=== PATIENT | female | born 1980 | race American Indian/Alaskan Native ===

== ENCOUNTER 2022-06-21 16:13 | Emergency (ER) | payer MEDICAID ==
[2022-06-21] MEDS ORDERED: FAMOTIDINE 20 MG/2 ML INJ IV ONE (20:37)
[2022-06-21] MEDS ORDERED: MORPHINE 4 MG/1 ML INJ IV ONE (20:37)
[2022-06-21] MEDS ORDERED: ONDANSETRON 4 MG/2 ML INJ IV ONE (20:37)
[2022-06-21 20:59] LABS: Basophils % (Auto) 0.3 % (0.0-1.8); Eosinophils % (Auto) 0.1 % (0.0-4.3); Hematocrit 42.2 % (30.3-42.9); Hemoglobin 13.8 gm/dl (10.1-14.3); Lymphocytes # (Auto) 1.9 K/mm3 (1.2-5.4); Lymphocytes % (Auto) 14.1 % (13.4-35.0); Mean Corpuscular HGB Conc 33 % (30-34); Mean Corpuscular Volume 83 fl (79-97); Monocytes # (Auto) 0.8 K/mm3 (0.0-0.8); Monocytes % (Auto) 6.3 % (0.0-7.3); Platelet Count 354 K/mm3 (140-440); Red Blood Count 5.07 M/mm3 (3.65-5.03); Red Cell Distribution Width 16.5 % (13.2-15.2)
[2022-06-21 21:19] LABS: Alanine Aminotransferase 8 units/L (7-56); Albumin 4.3 g/dL (3.9-5); Blood Urea Nitrogen 8 mg/dL (7-17); Calcium 9.4 mg/dL (8.4-10.2); Hemolysis Index 7
[2022-06-21 21:24] LABS: BUN/Creatinine Ratio 11
[2022-06-21 21:33] LABS: Color,Urine Yellow (Yellow)
[2022-06-21 21:35] LABS: Bilirubin,Urine Small (Negative); Blood,Urine Negative (Negative)
[2022-06-21 21:36] LABS: Urobilinogen,Urine 0.2 mg/dL (<2.0)
[2022-06-21 21:38] LABS: Ictotest,Urine Negative (Negative)
[2022-06-21 21:40] LABS: Hyaline Casts,Urine 14 /LPF; Mucus,Urine 3+ /HPF
[2022-06-21] MEDS ORDERED: POTASSIUM CHLORIDE ER 20 MEQ TAB PO ONE (21:46)
--- NOTE | 2022-06-21 22:23 | XRay Report ---
CHEST 1 VIEW INDICATION: chest pain. COMPARISON: None. FINDINGS: Support devices: None. Heart: Normal. Lungs/Pleura: No acute pulmonary or pleural findings. IMPRESSION: 1. No acute findings. Signer Name: Wilian Robison MD Signed: 06/21/2022 10:18 PM Workstation Name: [id number]
--- NOTE | 2022-06-21 22:26 | Cat Scan Report ---
CT ABDOMEN AND PELVIS WITH IV CONTRAST INDICATION: ABDOMINAL PAIN 100ml of [id number] per pt, having all over abdominal pain and symptoms sounding like ref lux as well. COMPARISON: None available. TECHNIQUE: All CT scans at this facility use dose modulation, automated exposure control, iterative reconstructi on or weight based dosing, when appropriate, to reduce radiation dose to as low as reasonably achieva ble. FINDINGS: Lung Bases: No significant abnormality. Skeletal System: No acute abnormality. ABDOMEN: Liver: No significant abnormality. Gallbladder: Removed. Bile Ducts: No significant abnormality. Adrenals: No significant abnormality. Right Kidney: No significant abnormality. Left Kidney: No significant abnormality. Pancreas: No significant abnormality. Spleen: No significant abnormality. Upper GI tract: No significant abnormality. Lymph Nodes: No significant adenopathy. Aorta: No significant abnormality. Additional Findings: No significant abnormality. PELVIS: Colon: No acute abnormality. Urinary Bladder and Distal Ureters: No significant abnormality. Appendix: No significant abnormality. Lymph Nodes: No significant adenopathy. Additional Findings: Enhancing uterine myometrial lesions are consistent with fibroids. IMPRESSION: 1. No acute process in the abdomen or pelvis. 2. Incidental findings, as above. Signer Name: Wilian Robison MD Signed: 06/21/2022 10:21 PM Workstation Name: [id number]
[2022-06-21] MEDS ORDERED: SUCRALFATE 1 GM/10 ML ORAL LIQD PO ONE (22:46)
--- NOTE | 2022-06-22 00:39 | Emergency Department Report ---
ED Abdominal Pain HPI - General Chief Complaint: Abdominal Pain Stated Complaint: STOMACH PAIN Source: patient Mode of arrival: Ambulatory Limitations: No Limitations - History of Present Illness Initial Comments: Patient is a 41-year-old -[place] female with a history of hypertension and who is noncompliant with medication presents to the ED with complaint of acute onset persistent epigastric pain with nausea and vomiting for the last 1 week, worse in the last 3 days. Patient states that she has not been able to keep anything down because of persistent pain in the epigastric area and nausea and vomiting in the last 2 days. Patient denies fever, chills, nausea, vomiting, chest pain, shortness of breath, diarrhea, dysuria, urinary frequency and urgency, vaginal bleeding or vaginal discharge or low back pain. MD Complaint: abdominal pain (epigastric pain), other (nausea and vomiting) -: Gradual, week(s) (1) Location: epigastric Radiation: none Migration to: no migration Severity: severe Severity scale (0 -10): 8 Quality: cramping, sharp Improves With: nothing Worsens With: eating, vomiting Context: other (GERD) Associated Symptoms: denies other symptoms, nausea, vomiting, constipation - Related Data LMP Date: 05/29/22 Previous Rx's Medication Instructions Recorded Last Taken Type Erythromycin [Erythromycin Ophth 0.5 inch OD TID #1 tube 12/19/14 Unknown Rx Oint] Mupirocin [Bactroban 2% OINT] 1 applic TP BID #7 day 12/19/14 Unknown Rx Sulfamethoxazole/Trimethoprim 1 each PO BID #20 tablet 12/19/14 Unknown Rx [Bactrim Ds] amLODIPine 5 mg PO DAILY #30 tab 12/19/14 Unknown Rx Dicyclomine [Bentyl] 20 mg PO Q6H PRN #30 tablet 06/22/22 Unknown Rx Famotidine [Pepcid] 20 mg PO BID #60 tablet 06/22/22 Unknown Rx Omeprazole 40 mg PO DAILY #30 cap 06/22/22 Unknown Rx Ondansetron [Zofran Odt] 4 mg PO Q8HR PRN #20 tab.rapdis 06/22/22 Unknown Rx amLODIPine 10 mg PO DAILY #30 tab 06/22/22 Unknown Rx Allergies Allergy/AdvReac Type Severity Reaction Status Date / Time No Known Allergies Allergy Verified 02/02/15 12:01 ED Review of Systems ROS: Stated complaint: STOMACH PAIN Other details as noted in HPI Constitutional: denies: chills, fever Eyes: denies: eye pain, eye discharge, vision change ENT: denies: ear pain, throat pain Respiratory: denies: cough, shortness of breath, wheezing Cardiovascular: denies: chest pain, palpitations Endocrine: no symptoms reported Gastrointestinal: nausea, vomiting, constipation. denies: abdominal pain, diarrhea Genitourinary: denies: urgency, dysuria, discharge Musculoskeletal: denies: back pain, joint swelling, arthralgia Skin: denies: rash, lesions Neurological: denies: headache, weakness, paresthesias Psychiatric: denies: anxiety, depression Hematological/Lymphatic: denies: easy bleeding, easy bruising ED Past Medical Hx - Past Medical History Hx Hypertension: Yes Additional medical history: meningitis 2003 - Surgical History Hx Cholecystectomy: Yes - Social History Smoking Status: Current Every Day Smoker - Medications Home Medications: Home Medications Medication Instructions Recorded Confirmed Last Taken Type Erythromycin [Erythromycin Ophth 0.5 inch OD TID #1 tube 12/19/14 Unknown Rx Oint] Mupirocin [Bactroban 2% OINT] 1 applic TP BID #7 day 12/19/14 Unknown Rx Sulfamethoxazole/Trimethoprim 1 each PO BID #20 tablet 12/19/14 Unknown Rx [Bactrim Ds] amLODIPine 5 mg PO DAILY #30 tab 12/19/14 Unknown Rx Dicyclomine [Bentyl] 20 mg PO Q6H PRN #30 tablet 06/22/22 Unknown Rx Famotidine [Pepcid] 20 mg PO BID #60 tablet 06/22/22 Unknown Rx Omeprazole 40 mg PO DAILY #30 cap 06/22/22 Unknown Rx Ondansetron [Zofran Odt] 4 mg PO Q8HR PRN #20 tab.rapdis 06/22/22 Unknown Rx amLODIPine 10 mg PO DAILY #30 tab 06/22/22 Unknown Rx ED Physical Exam - General Limitations: No Limitations General appearance: alert, in no apparent distress - Head Head exam: Present: atraumatic, normocephalic, normal inspection - Eye Eye exam: Present: normal appearance, PERRL, EOMI Pupils: Present: normal accommodation - ENT ENT exam: Present: normal exam, normal orophraynx, mucous membranes moist, TM's normal bilaterally, normal external ear exam - Neck Neck exam: Present: normal inspection, full ROM. Absent: tenderness - Respiratory Respiratory exam: Present: normal lung sounds bilaterally. Absent: respiratory distress, wheezes, rales, rhonchi, chest wall tenderness, accessory muscle use, decreased breath sounds, prolonged expiratory - Cardiovascular Cardiovascular Exam: Present: regular rate, normal rhythm, normal heart sounds. Absent: systolic murmur, diastolic murmur, rubs, gallop - GI/Abdominal GI/Abdominal exam: Present: soft, tenderness (EPIGASTRIC), normal bowel sounds. Absent: guarding, rebound, hyperactive bowel sounds, hypoactive bowel sounds, organomegaly - Extremities Exam Extremities exam: Present: normal inspection, full ROM, normal capillary refill. Absent: tenderness - Back Exam Back exam: Present: normal inspection, full ROM. Absent: tenderness, CVA tenderness (R), CVA tenderness (L), muscle spasm, paraspinal tenderness, vertebral tenderness - Neurological Exam Neurological exam: Present: alert, oriented X3, CN II-XII intact, normal gait, reflexes normal - Psychiatric Psychiatric exam: Present: normal affect, normal mood - Skin Skin exam: Present: warm, dry, intact, normal color. Absent: rash ED Course Vital Signs 06/21/22 06/21/22 16:26 20:58 Temperature 98.9 F Pulse Rate 72 56 L Respiratory 18 12 Rate Blood Pressure 203/104 Blood Pressure 185/104 210/111 [Left] O2 Sat by Pulse 99 100 Oximetry ED Medical Decision Making - Lab Data Result diagrams: 06/21/22 20:47 06/21/22 20:47 - Radiology Data Radiology results: report reviewed, image reviewed [address] [address] Cat Scan Report Signed Patient: MALLORY PIERRE MR#: [id number] : 1980 Acct:[id number] Age/Sex: 41 / F ADM Date: 06/21/22 Loc: ED Attending Dr: Ordering Physician: ARNOLDO LEWIS Date of Service: 06/21/22 Procedure(s): CT abdomen pelvis w con Accession Number(s): [id number] cc: ARNOLDO LEWIS CT ABDOMEN AND PELVIS WITH IV CONTRAST INDICATION: ABDOMINAL PAIN 100ml of [id number] per pt, having all over abdominal pain and symptoms sounding like reflux as well. COMPARISON: None available. TECHNIQUE: All CT scans at this facility use dose modulation, automated exposure control, iterative reconstruction or weight based dosing, when appropriate, to reduce radiation dose to as low as reasonably achievable. FINDINGS: Lung Bases: No significant abnormality. Skeletal System: No acute abnormality. ABDOMEN: Liver: No significant abnormality. Gallbladder: Removed. Bile Ducts: No significant abnormality. Adrenals: No significant abnormality. Right Kidney: No significant abnormality. Left Kidney: No significant abnormality. Pancreas: No significant abnormality. Spleen: No significant abnormality. Upper GI tract: No significant abnormality. Lymph Nodes: No significant adenopathy. Aorta: No significant abnormality. Additional Findings: No significant abnormality. PELVIS: Colon: No acute abnormality. Urinary Bladder and Distal Ureters: No significant abnormality. Appendix: No significant abnormality. Lymph Nodes: No significant adenopathy. Additional Findings: Enhancing uterine myometrial lesions are consistent with fibroids. IMPRESSION: 1. No acute process in the abdomen or pelvis. 2. Incidental findings, as above. Signer Name: Wilian Robison MD Signed: 06/21/2022 10:21 PM Workstation Name: [id number] Transcribed By: THAD Dictated By: Wilian Robison MD Electronically Authenticated By: Wilian Robison MD Signed Date/Time: 06/21/222220 DD/ 18 TD/TT: [facility] [address] [place] [address] XRay Report Signed Patient: MALLORY PIERRE MR#: [id number] : 1980 Acct:[id number] Age/Sex: 41 / F ADM Date: 06/21/22 Loc: ED Attending Dr: Ordering Physician: ARNOLDO LEWIS Date of Service: 06/21/22 Procedure(s): XR chest 1V ap Accession Number(s): [id number] cc: ARNOLDO LEWIS Fluoro Time In Minutes: CHEST 1 VIEW INDICATION: chest pain. COMPARISON: None. FINDINGS: Support devices: None. Heart: Normal. Lungs/Pleura: No acute pulmonary or pleural findings. IMPRESSION: 1. No acute findings. Signer Name: Wilian Robison MD Signed: 06/21/2022 10:18 PM Workstation Name: [id number] Transcribed By: SW Dictated By: Wilian Robison MD Electronically Authenticated By: Wilian Robison MD Signed Date/Time: 06/21/222217 DD/ 17 TD/TT: - Medical Decision Making This is a 41-year-old -[place] female with a history of hypertension and who is noncompliant with medication presents to the ED with complaint of acute onset persistent epigastric pain with nausea and vomiting for the last 1 week, worse in the last 3 days. Patient states that she has not been able to keep anything down because of persistent pain in the epigastric area and nausea and vomiting in the last 2 days. In the ED, patient is alert and oriented x3 and is not in any distress. Patient was treated for nausea and vomiting, also given antacids and pain medications. Lab test results were reviewed and showed acute leukocytosis of 13,400 and mild hypokalemia of 3.1 mmol/L. Abdomen pelvis CT scan with contrast showed no acute abnormalities. Chest x-ray showed no acute cardiopulmonary normalities or pneumonitis. On reevaluation, patient pain is well controlled medication. Patient will discharge home on medications and advised to follow-up with her primary care physician in 5 to 7 days for reevaluation or return to the ED immediately if symptoms get worse. - Differential Diagnosis GERD; gastritis; gastroenteritis; pancreatitis; ACS; pneumonia; UTI Critical care attestation.: If time is entered above; I have spent that time in minutes in the direct care of this critically ill patient, excluding procedure time. ED Disposition Clinical Impression: Abdominal pain, acute, epigastric, Nausea and vomiting in adult GERD (gastroesophageal reflux disease) Qualifiers: Esophagitis presence: esophagitis presence not specified Qualified Code(s): K21.9 - Gastro-esophageal reflux disease without esophagitis Disposition: HOME / SELF CARE / HOMELESS Is pt being admited?: No Does the pt Need Aspirin: No Condition: Stable Instructions: Abdominal Pain (ED), Heartburn, [id number], Nausea and Vomiting, Adult, [id number], Abdominal Pain, Adult, [id number], Gastroesophageal Reflux Disease, Adult, [id number] Additional Instructions: Lab test results were reviewed and are all nonactionable. Abdomen pelvis CT scan with IV contrast showed no acute abnormalities. The chest x-ray showed no acute cardiopulmonary abnormalities or pneumonitis. Therefore take medication with food, drink plenty of fluids, follow-up with your primary care physician in 7 to 10 days for reevaluation. Return to the ED immediately if symptoms get worse. Prescriptions: amLODIPine 10 mg PO DAILY #30 tab Dicyclomine [Bentyl] 20 mg PO Q6H PRN #30 tablet PRN Reason: Abdominal pain Omeprazole 40 mg PO DAILY #30 cap Famotidine [Pepcid] 20 mg PO BID #60 tablet Ondansetron [Zofran Odt] 4 mg PO Q8HR PRN #20 tab.rapdis PRN Reason: Nausea Referrals: VICTOR MANUEL OLSON MD [Primary Care Provider] - 3-5 Days Time of Disposition: 00:43 Print Language: UZBEK
[2022-06-22 01:27] VITALS: BP 206/102
--- NOTE | 2022-06-24 10:10 | Electrocardiograph Report ---
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
== END 2022-06-22 01:27 | disposition home or self-care (01) ==
LOC: ED 16:13
DX: R10.13 Epigastric pain (principal); R11.2 Nausea with vomiting, unspecified; K21.9 Gastro-esophageal reflux disease without esophagitis; I10 Essential (primary) hypertension; Z90.49 Acquired absence of other specified parts of digestive tract
CPT/HCPCS: 36415; 71045; 74177; 80053; 81001; 83690; 84484; 84703; 85025; 87086; 93005; 96374; 96375; 99284; J2270; J2405; J3490; Q9967